=== PATIENT | female | born 1975 | race African-American/Black ===

== ENCOUNTER 2019-06-13 09:52 | Inpatient (IN) | payer OTHER ==
[~2019-06-13] VITALS: Ht 154.9 cm; Wt 38.6 kg
[2019-06-13 09:53] VITALS: BP 136/74
[2019-06-13] MEDS ORDERED: NOHOMEMEDICATIONS (10:00)
[2019-06-13 10:35] LABS: ABSOLUTE NEUTROPHILS 14.5 thou/uL (1.4-8.2); BASOPHILS 0.2 % (0.0-2.0); HEMOGLOBIN 12.4 gm/dL (12.0-15.0); LYMPHOCYTES 5.6 % (24.0-44.0); MCH 32.4 pg (26.0-34.0); MCHC 31.1 g/dL (28.0-37.0); MCV 104.4 fL (80.0-100.0); MONOCYTES 5.8 % (1.0-8.0); PLATELET COUNT 222 thou/uL (150-400); POLYS 88.4 % (36.0-66.0); RBC 3.83 mil/uL (4.20-5.00); WBC 16.4 thou/uL (4.0-11.0)
[2019-06-13 10:48] LABS: ALBUMIN 4.2 g/dL (3.4-5.0); CREATININE 0.8 mg/dL (0.6-1.0); POTASSIUM 4.6 mmol/L (3.5-5.1); TOTAL BILIRUBIN 1.1 mg/dL (<0.1-1.0); TOTAL PROTEIN 7.8 g/dL (6.4-8.2)
[2019-06-13 10:59] LABS: URINE BILIRUBIN NEGATIVE (Negative); URINE BLOOD TRACE (Negative); URINE CLARITY CLEAR; URINE COLOR YELLOW; URINE GLUCOSE-RANDOM* NEGATIVE (Negative); URINE KETONES 3+ (Negative); URINE LEUKOCYTES-REFLEX NEGATIVE (Negative); URINE NITRITE-REFLEX NEGATIVE (Negative); URINE PROTEIN (DIPSTICK) 1+ (Negative); URINE SPECIFIC GRAVITY >= 1.030 (1.005-1.035); URINE UROBILINOGEN 0.2 E.U./dl (0.2-1.0)
[2019-06-13 11:05] LABS: URINE REDUCING SUBSTANCE NEGATIVE
[2019-06-13 11:42] LABS: BACTERIA-REFLEX 1-9 Few /HPF (None Seen); CASTS None Seen /LPF (None Seen); CRYSTALS None Seen /LPF (None Seen); SQUAMOUS 4-10 Moderate /LPF (0-3); URINE RBC None Seen /HPF (0-2); URINE WBC-REFLEX 0-5 Rare /HPF (0-5)
[2019-06-13 12:14] VITALS: BP 119/86
[2019-06-13 12:36] VITALS: BP 124/89
[2019-06-13 12:42] LABS: AMP/METHAMP Negative (Negative); BARBITURATES Negative (Negative); BENZODIAZEPINES Negative (Negative); COCAINE Negative (Negative); METHADONE Negative (Negative); OPIATES Negative (Negative); PCP Negative (Negative)
[2019-06-13 12:57] VITALS: BP 142/109
[2019-06-13 13:18] LABS: CHOLESTEROL 210 mg/dL (<200); HDL CHOLESTEROL 137 mg/dL (>40); LDL CHOLESTEROL 47 mg/dL (<100); TC:HDL 1.5 Ratio (Not establshd); TRIGLYCERIDE 132 mg/dL (<150); VLDL 26 mg/dL (<40)
[2019-06-13 15:04] LABS: MAGNESIUM 1.2 mg/dL (1.8-2.4); PHOSPHORUS 3.4 mg/dL (2.5-4.9)
[2019-06-13 15:29] LABS: TSH 0.145 uIU/mL (0.358-3.740)
[2019-06-13 16:03] LABS: FOLIC ACID > 100.0 ng/mL (8.6-58.9)
[2019-06-13 17:50] VITALS: BP 110/76
--- NOTE | 2019-06-13 18:41 | NUR ---
PT CARE ASSUMED APPROXIMATELY 1300. PT ASSESSMENTS CHARTED. PT MEDICATION CHARTED. PT IS OCCASSIONALLY INCONTINENT OF URINE. RN GAVE DAUGHTER A CLINICAL UPDATE 1365, SHE WILL CALL LATER. PT HAS BEEN SLEEPING REGULARLY. PT HAS OCCASSIONAL NAUSEA AND HAS VOMITED TWICE SINCE ARRIVING ON UNIT.
[2019-06-13 20:30] VITALS: BP 141/83
[2019-06-14 00:30] VITALS: BP 106/71
[2019-06-14 03:30] VITALS: BP 115/55
--- NOTE | 2019-06-14 04:34 | NUR ---
ASSUMED PT CARE AT 1900. PT IS VERY LETHARGIC AND NOT RESPONSDING. PT IS AROUSABLE. PT IS STABLE. NO SIGN OF DISTRESS NOTED IN PT. CIWA PROTOCOL IN PLACE. ASSESSMENT COMPLETED AND DOCUMENTED. FALL PRECAUTION IN PLACE. SCHEDULED MEDS ADMINISTERED TO PT. TOLERATED PO INTAKE. HEART RATE ELEVATED. PT IS STABLE THROUGOUT THE NIGHT. CONTINUE TO MONITOR PT.
[2019-06-14 07:18] VITALS: BP 119/79
[2019-06-14 10:16] LABS: CALCIUM 9.3 mg/dL (8.5-10.1); CREATININE 0.8 mg/dL (0.6-1.0)
[2019-06-14 10:20] LABS: POTASSIUM 3.4 mmol/L (3.5-5.1)
[2019-06-14 13:07] VITALS: BP 119/79
--- NOTE | 2019-06-14 13:39 | NUR ---
Spoke with patient who reports she lives alone in [facility] with multiple steps. She reports independent with adls but does not drive. Patient reports she does not work. Questioned how she pays for utlities she reports "a judy" helps her and she lives in [address]. Patient reports her dtr brings groceries. Discussed ETOH abuse and patient reports its not her ETOH the issue. She reports she cannot eat. She sees food and becomes nauseated. She wants to eat but unable to eat. She reports today she choked on chicken. If she eats it willis inside her stomach. Patient reports she has been drinking less than usual and still unable to hold food down. Patient agreeable to ETOH resources but wants to resolve her anorexia. Patient reports she has medicare health insurance. Left message for registration to inquire. She reports she is applying for disability. She has no PCP. She reports her weight loss and difficulty eating has been going on for 8 years. Only support is her dtr. Discssed resources and placed information in her dc instructions. Encouraged patient to establish a PCP. [facility] following.
--- NOTE | 2019-06-14 15:03 | NUR ---
Nutrition: Suggest consideration of GI eval due to pt comments related to Unable to eat, nausea, esophageal/stomach pain. Hx heavy ETOH use.
[2019-06-14 16:14] VITALS: BP 146/92
--- NOTE | 2019-06-14 17:03 | NUR ---
PT CARE ASSUMED APPROX 0700. ASSESSMENT CHARTED. PT DENIES SOA. REPORTS MILD HEADACHE AND MILD NAUSEA. CIWA REMAINS AT A 3. PT IN NO DISTRESS AND TOLERATING POC.
[2019-06-14 19:18] VITALS: BP 115/72
[2019-06-15 03:30] VITALS: BP 120/82
--- NOTE | 2019-06-15 04:32 | NUR ---
ASSUMED PT CARE AT 1900. PT IS ALERT AND ORIENTED WITH NO SIGN OF DISTRESS NOTED. PT IS STABLE. FALL PRECAUTION IN PLACE. DENIES ANY PAIN. ASSESSMENT COMPLETED AND DOCUMENTED. SCHEDULED MEDS ADMINISTERED TO PT. TOLERATED PO INTAKE. DENIES ANY FURTHER NEEDS AT THIS TIME.
[2019-06-15 05:20] LABS: CALCIUM 8.1 mg/dL (8.5-10.1); CREATININE 0.6 mg/dL (0.6-1.0); MAGNESIUM 1.9 mg/dL (1.8-2.4); PHOSPHORUS 1.7 mg/dL (2.5-4.9); POTASSIUM 3.1 mmol/L (3.5-5.1); TOTAL BILIRUBIN 0.5 mg/dL (<0.1-1.0); TOTAL PROTEIN 5.5 g/dL (6.4-8.2)
[2019-06-15 05:39] LABS: HEMATOCRIT 29.3 % (37.0-47.0); MCH 33.2 pg (26.0-34.0); MCHC 33.1 g/dL (28.0-37.0); MCV 100.1 fL (80.0-100.0); RBC 2.93 mil/uL (4.20-5.00); RDW 17.4 % (10.5-14.5); WBC 6.3 thou/uL (4.0-11.0)
[2019-06-15 05:46] LABS: HEMOGLOBIN 9.7 gm/dL (12.0-15.0)
[2019-06-15 07:30] VITALS: BP 129/90
--- NOTE | 2019-06-15 14:19 | NUR ---
[employer] has visited with the pt via phone and will assist her with getting [place]icaid [place]. They have faxed an authorization form to the unit for the pt's signature. Unit RN notified and they will fax it back to [facility] with the pt's signature this afternoon.
[2019-06-15 16:20] VITALS: BP 154/103
[2019-06-15 18:24] VITALS: BP 154/103
--- NOTE | 2019-06-15 19:00 | NUR ---
ASSUMED CARE OF PT AT SHIFT CHANGE. ASSESSMENT CHARTED. MEDS GIVEN PER MAY. PT A&OX4, NO C/O N/V. UP AD ELISEO, NO DISTRESS. CM HELPING WITH REINSTATING MEDICAID. PT OPEN TO REHAB FOR ALCOHOLISM. WILL CONTINUE TO MONITOR AND FOLLOW POC.
[2019-06-16 03:41] VITALS: BP 136/74
--- NOTE | 2019-06-16 04:33 | NUR ---
ASSUMED PT CARE AT 1900. PT IS ALERT AND ORIENTED. NO SIGN OF DISTRESS NOTED IN PT. DENIES ANY PAIN. NO SIGN OF WITHDRAWAL IN PT. PT IS AMBULATORY AND STEADY. DENIES ANY PAIN. ASSESSMENT COMPLETED AND DOCUMENTED. SCHEDUMED MEDS ADMINISTERED TO PT. TOLERATED PO INTAKE. DENIES NAUSEA. NO FURTHER NEEDS AT THIS TIME.
[2019-06-16 05:19] LABS: HEMATOCRIT 29.6 % (37.0-47.0); HEMOGLOBIN 9.7 gm/dL (12.0-15.0); MCH 32.5 pg (26.0-34.0); MCHC 32.9 g/dL (28.0-37.0); MCV 98.7 fL (80.0-100.0); RDW 17.8 % (10.5-14.5); WBC 4.9 thou/uL (4.0-11.0)
[2019-06-16 07:15] VITALS: BP 133/90
[2019-06-16 08:15] VITALS: BP 133/90
[2019-06-16] MEDS ORDERED: REMERON 30 MG T30 M1 PO (09:04)
[2019-06-16] MEDS ORDERED: PRENATAL PO (09:05)
[2019-06-16] MEDS ORDERED: VITAMIN B-1100 M2 PO (09:05)
[2019-06-16 09:24] VITALS: BP 119/79
== END 2019-06-16 10:55 | disposition home or self-care (01) | DRG 897 ==
LOC: ER 09:52 → 2N 12:40 → EROBS 12:44 → 2N 12:44
PROVIDERS: Emergency Medicine; ADMIT Hospitalist
DX: F10.239 Alcohol dependence with withdrawal, unspecified (principal); E87.2 Acidosis; E46 Unspecified protein-calorie malnutrition; D61.818 Other pancytopenia; F17.210 Nicotine dependence, cigarettes, uncomplicated; F12.90 Cannabis use, unspecified, uncomplicated; F32.9 Major depressive disorder, single episode, unspecified; E07.81 Sick-euthyroid syndrome; Z68.1 Body mass index [BMI] 19.9 or less, adult
CPT/HCPCS: 10081

== ENCOUNTER 2019-07-18 15:36 | Inpatient (IN) | payer OTHER ==
[~2019-07-18] VITALS: Ht 154.9 cm; Wt 50.2 kg
[~2019-07-18 15:36] MED LIST: NOHOMEMEDICATIONS; PRENATAL PO; REMERON 30 MG T30 M1 PO; VITAMIN B-1100 M2 PO
[2019-07-18 15:38] VITALS: BP 135/100
--- NOTE | 2019-07-18 16:03 | NUR ---
2 ATTEMPTS AT AN IV UNSUCCESSFUL
[2019-07-18 16:59] LABS: HEMOGLOBIN 14.4 gm/dL (12.0-15.0); MCH 33.8 pg (26.0-34.0); MCHC 32.1 g/dL (28.0-37.0); MCV 105.3 fL (80.0-100.0); PLATELET COUNT 164 thou/uL (150-400); RBC 4.27 mil/uL (4.20-5.00); RDW 16.1 % (10.5-14.5); WBC 6.8 thou/uL (4.0-11.0)
[2019-07-18 17:11] LABS: ANION GAP 30 mmol/L (7-16); BUN 4 mg/dL (7-18); CALCIUM 10.3 mg/dL (8.5-10.1); CHLORIDE 94 mmol/L (98-107); CO2 12 mmol/L (21-32); CREATININE 1.1 mg/dL (0.6-1.0); GLUCOSE 123 mg/dL (74-106); POTASSIUM 4.1 mmol/L (3.5-5.1); SODIUM 136 mmol/L (136-145)
[2019-07-18 17:21] LABS: ALBUMIN 4.9 g/dL (3.4-5.0); LIPASE 954 U/L (73-393); MAGNESIUM 1.7 mg/dL (1.8-2.4); SGOT 94 U/L (15-37); SGPT 48 U/L (30-65); TOTAL BILIRUBIN 0.9 mg/dL (<0.1-1.0); TOTAL PROTEIN 8.7 g/dL (6.4-8.2); TROPONIN-I <0.06 ng/mL (<0.06)
[2019-07-18 17:46] LABS: ABSOLUTE NEUTROPHILS 4.3 thou/uL (1.4-8.2); ANISOCYTOSIS 2+
[2019-07-18 17:47] LABS: MACROCYTES 1+
[2019-07-18 18:57] VITALS: BP 148/88
[2019-07-18 19:11] LABS: URINE BLOOD NEGATIVE (Negative); URINE CLARITY CLEAR; URINE COLOR YELLOW; URINE GLUCOSE-RANDOM* NEGATIVE (Negative); URINE KETONES 3+ (Negative); URINE LEUKOCYTES-REFLEX NEGATIVE (Negative); URINE NITRITE-REFLEX NEGATIVE (Negative); URINE PROTEIN (DIPSTICK) 1+ (Negative); URINE SPECIFIC GRAVITY >= 1.030 (1.005-1.035)
[2019-07-18 19:15] LABS: ICTOTEST (BILI CONFIRMATORY) Negative (Negative); URINE BILIRUBIN NEGATIVE (Negative)
--- NOTE | 2019-07-18 19:17 | NUR ---
ATTEMPTED TO CALL REPORT, NURSE IS UNAVAILABLE AND WILL CALL BACK
[2019-07-18 19:23] LABS: CASTS None Seen /LPF (None Seen); CRYSTALS None Seen /LPF (None Seen); SQUAMOUS 4-10 Moderate /LPF (0-3)
[2019-07-18 19:24] LABS: BACTERIA-REFLEX 1-9 Few /HPF (None Seen); HYALINE CASTS 0-3 Few /LPF (None Seen); URINE RBC None Seen /HPF (0-2); URINE WBC-REFLEX 0-5 Rare /HPF (0-5)
[2019-07-18 19:44] VITALS: BP 148/88
[2019-07-18 19:58] VITALS: BP 126/91
[2019-07-18 23:16] VITALS: BP 111/74
[2019-07-18 23:53] LABS: CALCIUM 9.3 mg/dL (8.5-10.1); CREATININE 0.7 mg/dL (0.6-1.0); POTASSIUM 5.4 mmol/L (3.5-5.1)
[2019-07-19] VITALS (8 sets, daily range): BP systolic 101–142; BP diastolic 57–92
[2019-07-19 02:31] LABS: HEMATOCRIT 36.8 % (37.0-47.0); MCH 33.5 pg (26.0-34.0); MCHC 32.4 g/dL (28.0-37.0); MCV 103.4 fL (80.0-100.0); RBC 3.56 mil/uL (4.20-5.00); RDW 16.3 % (10.5-14.5)
[2019-07-19 02:34] LABS: HEMOGLOBIN 11.9 gm/dL (12.0-15.0)
[2019-07-19 02:48] LABS: CALCIUM 9.1 mg/dL (8.5-10.1); MAGNESIUM 2.4 mg/dL (1.8-2.4); POTASSIUM 3.9 mmol/L (3.5-5.1); TOTAL BILIRUBIN 0.7 mg/dL (<0.1-1.0); TOTAL PROTEIN 7.4 g/dL (6.4-8.2)
--- NOTE | 2019-07-19 04:33 | NUR ---
PATIENTS CARES WERE ASSUMES AT ARRIVAL FROM THE ER. PATIENT WAS ADMITTED AND ASSESSED. PAIN MED WERE GIVEN AND LABS DONE TO HAVE AN EYE ON HER LYTIC ACID. PAIN MEDS WERE GIVEN. PATIENT WAS ABLE TO SLEEP APPROX 7 HOURS THIS SHIF. HOURLY ROUNDS WERE DONE. THE BED IS IN A LOW AND LOCKED POSITION,BED ALARM IS ON.
--- NOTE | 2019-07-19 08:07 | EKG ---
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
--- NOTE | 2019-07-19 08:36 | NUR ---
ASSUMED CARE OF PT. C/O NAUSEAU AT THIS TIME ASKED FOR MEDICATION FOR SUCH, ZOFRAN PROVIDED, WILL RE-EVALUATE POST INTERVENTION. DENIES ANY PAIN AT THIS TIME OTHER THEN "SOME MILD BELLY TENDERNESS". DENIES ANY CHEST PAIN. IV REINFORCED WITH TAPE FOR PROTECTION OF SUCH. SELF AMBULATED TO RESTROOM, STEADY ON HER FEET. PT. WET HER BED ALL OVER, ALL LINENS CHANGED AT THIS TIME AND PT. WIPED WELL AND CLEANED UP, ASSISTED PT. BACK TO BED. IV SITE C,D,I FLUSHES EASILY AND IVF INFUSING NO ISSUES.
--- NOTE | 2019-07-19 15:04 | NUR ---
Patient admits with nausea/vomiting/pancreatitis. Patient with recent hospital stay in June. Patient consumes ETOH. Sp with patient by phone she reports after last dc she has not drank ETOH exept a wine cooler on mothers day. She reports she has not sought a PCP. [place] medicaid [place]. Patient reports living in [place] with her 13 year old child and her 25 year dtr comes by often to help. She reports her 13 year old is staying with her sister at this time. Patient interest in ETOH tx. Faxed info for RN to give patient on ETOH resources, [facility] and [facility]. Patient reports cont difficulty with eating. She has an ensure she is going to attempt to drink. [facility] following
[2019-07-20 04:02] VITALS: BP 109/77
--- NOTE | 2019-07-20 05:13 | NUR ---
PATIENTS CARES WERE ASSUMED AT [facility].PATIENT WAS ASSESSED AND MEDS WERE PASSED.PATIENT SLEEP MOST OF THIS SHIFT. PATIENT HAD A EPISODE OF NAUSEA AT THE BEGINING OF THE SHIFT.PATIENT HAS BEEN NPO SINCE MIDNIGHT, EGD TODAY HOURLY ROUNDS WERE MADE. THE BED IS IN A LOW AND LOCKED POSITION.
[2019-07-20 10:09] LABS: HEMATOCRIT 30.7 % (37.0-47.0); HEMOGLOBIN 10.4 gm/dL (12.0-15.0); MCH 34.5 pg (26.0-34.0); MCHC 33.7 g/dL (28.0-37.0); MCV 102.2 fL (80.0-100.0); WBC 3.6 thou/uL (4.0-11.0)
[2019-07-20 10:18] LABS: CALCIUM 8.7 mg/dL (8.5-10.1); CREATININE 0.7 mg/dL (0.6-1.0); MAGNESIUM 1.3 mg/dL (1.8-2.4)
[2019-07-20 12:30] VITALS: BP 125/76
--- NOTE | 2019-07-20 15:33 | NUR ---
ASSUMED CARE AT SHIFT CHANGE, ALERT AND ORIENTED X4. PATIENT REPORT NO EPISODE OF N/V. EGD WAS DONE TODAY. PATIENT TOLERATED CLEAR LIQUIDE DIET. ABD TENDER TO TOUCH, AND WILL CONTINUE WITH POC.
[2019-07-20 16:30] VITALS: BP 123/83
[2019-07-20 19:52] VITALS: BP 121/83
[2019-07-21 04:15] LABS: CALCIUM 8.4 mg/dL (8.5-10.1); CREATININE 0.6 mg/dL (0.6-1.0); MAGNESIUM 1.8 mg/dL (1.8-2.4)
[2019-07-21 04:16] LABS: HEMATOCRIT 31.3 % (37.0-47.0); HEMOGLOBIN 10.4 gm/dL (12.0-15.0); MCH 34.4 pg (26.0-34.0); MCHC 33.2 g/dL (28.0-37.0); MCV 103.5 fL (80.0-100.0); RBC 3.03 mil/uL (4.20-5.00); RDW 16.3 % (10.5-14.5); WBC 3.7 thou/uL (4.0-11.0)
[2019-07-21 04:28] VITALS: BP 113/82
[2019-07-21 07:15] VITALS: BP 115/72
--- NOTE | 2019-07-21 07:24 | NUR ---
pt given pain med once thru the noc for c/o abd pain, rested quietly the rest of the evening iv fluid infusing, voiding per bsc, vss, tolerating liquid diet, will con't to monitor per ppoc.
[2019-07-21 11:00] VITALS: BP 90/63
--- NOTE | 2019-07-21 15:24 | NUR ---
Case discussed with the care team. Advancing po diet slowly. Possible dc over the weekend once pt is tolerating po. Ethol resources provided to the pt and pt encouraged to establish a pcp and call ins cust service if she needs assistance.
[2019-07-21 15:26] VITALS: BP 131/87
[2019-07-21 15:28] LABS: CALCIUM 8.9 mg/dL (8.5-10.1); CREATININE 0.7 mg/dL (0.6-1.0); POTASSIUM 4.1 mmol/L (3.5-5.1)
--- NOTE | 2019-07-21 15:56 | P ---
[facility] [place] [address] PROCEDURE REPORT Name: CARIN PERDOMO Room #: 203-P ADM IN M.R.#: [id number] Admission: 07/18/19 Attend Phys: Sanya Mejia MD Discharge: Date of : 79 Report #: [id number] THIS REPORT FOR: cc: SALONI - No family physician/PCP SALONI - No family physician/PCP Donovan Diggs MD ~ CC: Sanya Mejia [facility] physician/PCP INPATIENT UPPER ENDOSCOPY REPORT BRIEF HISTORY: The patient is a 43-year-old woman with history of alcohol abuse. She also has nausea and vomiting and mild elevation of lipase. She has not had previous upper endoscopy. She also reports that she had recent emesis of brownish material and she reports she has been having black stools. She is mildly anemic. PREOPERATIVE DIAGNOSES: Hematemesis, melena, nausea, vomiting, abdominal pain and history of alcohol abuse. POSTOPERATIVE DIAGNOSES: 1. Moderate diffuse erythematous antral gastritis without ulceration. 2. Patchy bulbar duodenitis. 3. Mild grade A esophagitis. MEDICATIONS: Deep sedation with propofol per Anesthesia. SPECIMEN: Biopsies of gastritis. ESTIMATED BLOOD LOSS: 3 mL. PROCEDURE: EGD with biopsy. FINDINGS: Prior to propofol sedation, procedure of upper endoscopy discussed with the patient as well as potential risks and its complications. She indicates she understands and desires to proceed. DESCRIPTION OF PROCEDURE: With the patient in left lateral decubitus position, the Olympus video endoscope was inserted in the cervical esophagus under direct vision without difficulty. Examination of this organ through its entire length revealed normal esophageal mucosa down the squamocolumnar junction. Squamocolumnar junction was inspected. A few small erosions were seen. No ulcers were seen. In addition, she has a history of alcohol abuse and esophageal varices were not seen. A significant hiatus hernia was not seen. Scope was advanced in the stomach, which was examined on end view as well as retroflexed views. There was a moderate linear antral gastritis. No evidence of ulcers, erosions. No bleeding lesions or potential bleeding lesions were [facility] [address] [place] [address] PROCEDURE REPORT Name: CARIN PERDOMO Room #: 203-P [facility] IN ..#: [id number] Admission: 07/18/19 Attend Phys: Sanya Mejia MD Discharge: Date of : 79 Report #: [id number] seen. Upon retroflexion, no mass lesions were seen. Biopsies obtained to evaluate for H. pylori. The pylorus was unremarkable. Examination of duodenal bulb revealed patchy bulbar duodenitis. At that point, the scope was slowly withdrawn and careful circumferential views confirmed the above findings. The patient tolerated the procedure well. In addition, gastric varices were not seen. DISPOSITION: The patient with abdominal pain, nausea, vomiting, anorexia as well as a history consistent with hematemesis and melena. Minimal findings on upper endoscopic examination. The esophagitis may be a result of vomiting. Early short-term use of a PPI would be reasonable. We will follow up on biopsies. If symptoms of nausea, vomiting, and anorexia persist, she may need further evaluation such as a gastric emptying study. As noted above, there was no evidence of portal hypertension on this exam. <ELECTRONICALLY SIGNED> By: Donovan Diggs MD 07/21/19 1556 1101 1252 Donovan Diggs MD /nt
--- NOTE | 2019-07-21 16:07 | PATH ---
[facility] [address] [place] [address] PATHOLOGY RPT PROCEDURE Name: CARIN VASQUEZ Room #: 203-P ADM IN M.R.#: [id number] Admission: 07/18/19 Date of : 79 Discharge: Report #: [id number] Path Case #: [id number] [facility] Accession Number: [id number] . 01 Material submitted: . gastrointestinal site - BIOPSY OF GASTRITIS RULE OUT H PYLORI . 01 Clinical history: . N/V; R/O H. pylori . 02 Diagnosis: Gastric mucosa, gastritis, rule out H. pylori, endoscopic biopsy: - Mild chronic inflammation. - Negative for intestinal metaplasia or dysplasia. - Negative for Helicobacter pylori (properly controlled immunohistochemical stain performed. (IUV:pit 07/21/2019) QTP 07/21/2019 1220 Local . 02 Electronically signed: . Luciana García MD, Pathologist NPI- [id number] . 01 Gross description: . The specimen is received in formalin, labeled "Carin Vasquez, biopsy of gastritis, R/O H. pylori". Received are four segments of pale macario soft tissue ranging in size from 0.2 to 0.7 cm in maximum dimensions. The specimen is submitted entirely in cassette A1. (CAA; 07/20/2019) QA/[facility] 07/20/2019 1450 Local . 02 Pathologist provided ICD-10: K29.50 . 02 CPT . 739146, [id number] Specimen Comment: A courtesy copy of this report has been sent to [phone] Specimen Comment: Report sent to Performed at: [address], [place] [id number] MD Chris Lewis MD Phone: [phone] Performed at: [address] [id number] MD Luciana García MD Phone: [phone]
[2019-07-21 16:50] VITALS: BP 116/76
--- NOTE | 2019-07-21 18:49 | NUR ---
ASSESSMENT CHARTED. PT ALERT AND ORIENTED. HAD X1 EMESIS THIS SHIFT. PRN ZOFRAN GIVEN WITH PARTIAL RELIEF. COMPLAINED OF ABD PAIN. NEW ORDERS NOTED. WILL CONTINUE TO MONITOR.
[2019-07-21 22:07] VITALS: BP 121/93
[2019-07-22 04:48] VITALS: BP 122/86
[2019-07-22 04:51] LABS: HEMATOCRIT 29.7 % (37.0-47.0); HEMOGLOBIN 9.8 gm/dL (12.0-15.0); MCH 33.9 pg (26.0-34.0); MCV 102.9 fL (80.0-100.0); RBC 2.88 mil/uL (4.20-5.00); RDW 16.4 % (10.5-14.5); WBC 4.5 thou/uL (4.0-11.0)
[2019-07-22 05:29] LABS: ALBUMIN 2.9 g/dL (3.4-5.0); DIRECT BILIRUBIN 0.1 mg/dL (<0.1-0.2); TOTAL BILIRUBIN 0.4 mg/dL (<0.1-1.0); TOTAL PROTEIN 5.5 g/dL (6.4-8.2)
--- NOTE | 2019-07-22 06:23 | NUR ---
ASSESSMENT DOCUMENTED.PT BEEN RESTING IN NO ACUTE DISTRESS.A/OX4.DENIES NAUSEA OR VOMITING.C/O ABD PAIN X1 THAT WAS CONTROLLED WITH PAIN MEDS.PT ANTICIPATING TO BE DISCHARGED TODAY.WILL CONT TO MONITOR PER POC.
[2019-07-22 07:20] VITALS: BP 122/88
[2019-07-22] MEDS ORDERED: PROTONIX40 M1 PO (10:10)
[2019-07-22] MEDS ORDERED: NICOTINE TRANSD21 M1 TRANSDERM (10:11)
[2019-07-22] MEDS ORDERED: SUPER THERAVIT1 EACH PO (10:12)
[2019-07-22] MEDS ORDERED: FOLIC ACID1 MG PO (10:16)
--- NOTE | 2019-07-22 11:25 | NUR ---
ASSESSMENT CHARTED. PT ALERT AND ORIENTED. VSS. REPORT FEELING MUCH BETTER TODAY. SEEN BY DR. PEREA. ORDERS GIVEN TO DICHARGE PT TO HOME. DISCHARGE INSTRUCTIONS GIVEN TO PT. PT VERBERLISED UNDERSTANDING.
[2019-07-23 06:07] LABS: HAV IgM AB (ANTI-HAV IgM) Negative (Negative); HEPATITIS B SURFACE AG Negative (Negative); HEPATITIS C VIRUS AB <0.1 (0.0-0.9)
== END 2019-07-22 11:25 | disposition home or self-care (01) | DRG 377 ==
LOC: ER 15:36 → EROBS 17:50 → 2N 17:50
PROVIDERS: Emergency Medicine Emergency Medical Services; Internal Medicine; Nurse Practitioner Family; Specialist; ADMIT Hospitalist
PROC: 0DB68ZX Excision of Stomach, Via Natural or Artificial Opening Endoscopic, Diagnostic (ICD-10-PCS; principal; 2019-07-20)
DX: K29.61 Other gastritis with bleeding (principal); K85.20 Alcohol induced acute pancreatitis without necrosis or infection; E43 Unspecified severe protein-calorie malnutrition; E87.2 Acidosis; K22.11 Ulcer of esophagus with bleeding; K29.81 Duodenitis with bleeding; F10.20 Alcohol dependence, uncomplicated; F17.210 Nicotine dependence, cigarettes, uncomplicated; F12.90 Cannabis use, unspecified, uncomplicated; E83.42 Hypomagnesemia; R00.0 Tachycardia, unspecified; F32.9 Major depressive disorder, single episode, unspecified; E87.6 Hypokalemia; D53.9 Nutritional anemia, unspecified; Z79.899 Other long term (current) drug therapy; Z20.828 Contact with and (suspected) exposure to other viral communicable diseases
CPT/HCPCS: 10081; 10194; 62110; 62900